=== PATIENT | male | born 1985 | race Caucasian/White ===

== ENCOUNTER 2020-10-06 08:39 | Outpatient (CLI) | payer OTHER, SELFPAY ==
[2020-10-06 09:05] LABS: Basophils Percent Auto 0.3 % (0.2-1.2); Eosinophils Absolute Auto 0.4 K/mm3 (0-0.3); Eosinophils Percent Auto 3.5 % (0-4.4); Hematocrit 46.4 % (42.0-52.0); Hemoglobin 16.1 g/dL (14.0-18.0); Immature Granulocyte Absolute 0.02 K/mm3 (0.00-0.031); Immature Granulocyte Percent A 0.2 % (0-0.5); Lymphocytes Absolute Auto 3.96 K/mm3 (0.9-3.2); Lymphocytes Percent Auto 34.3 % (18.3-44.2); Mean Corpuscular HGB Conc 34.7 g/dl (32-36); Mean Corpuscular Hemoglobin 32.7 pg (26-34); Mean Corpuscular Volume 94.1 fl (80-100); Mean Platelet Volume 9.3 fl (7.4-10.4); Monocytes Percent Auto 8.2 % (2.6-8.5); Neutrophils Absolute Auto 6.2 K/mm3 (1.3-6.7); Neutrophils Percent Auto 53.5 % (45.5-73.1); Platelet Count Result 344 k/mm3 (150-375); Red Blood Count 4.93 M/mm3 (4.6-6.20); Red Cell Distribution Width 12.4 % (11.5-14.5); White Blood Count 11.5 K/mm3 (4.5-10.0)
[2020-10-06 09:18] LABS: Alanine Aminotransferase 36 U/L (4-50); Albumin Level 4.5 g/dL (3.5-5.1); Alkaline Phosphatase 85 U/L (38-126); Anion Gap 6 mmol/L (8-16); Aspartate Amino Transferase 36 U/L (17-59); Bilirubin,Total 0.7 mg/dL (0.2-1.3); Blood Urea Nitrogen 15 mg/dL (9-20); Calcium 9.3 mg/dL (8.4-10.2); Carbon Dioxide 29 mmol/L (22-30); Chloride 106 mmol/L (98-107); Estimated Glomerular Filt Rate > 60; Glucose 87 mg/dL (75-110); Potassium 4.7 mmol/L (3.4-5.0); Sodium 141 mmol/L (137-145)
[2020-10-09 19:16] LABS: Erythropoietin (EPO) 7.9 mIU/mL (2.6-18.5)
== END 2020-10-06 08:40 | disposition home or self-care (01) ==
PROVIDERS: Visit Provider Internal Medicine Hematology & Oncology
DX: D75.1 Secondary polycythemia (principal)
CPT/HCPCS: 36415; 80053; 82668; 85025

== ENCOUNTER 2022-01-15 10:27 | Emergency (ER) | payer OTHER, SELFPAY ==
--- NOTE | 2022-01-15 10:38 | ED.NAVMDI ---
HPI - Nausea/Vomiting/Diarrhea General Chief complaint: Nausea/Vomiting/Diarrhea Stated complaint: Body Aches/ Vomitting Time Seen by Provider: 01/15/22 10:38 Source: patient and RN notes reviewed Mode of arrival: ambulatory Limitations: no limitations History of Present Illness HPI Narrative: 36 y/o male presented for c/o n/v/d x3 days. Endorses epigastric abd pain and chills. Cannot keep PO down. Denies hematochezia, melena, or hematemesis. Denies change in cough, sob, wheezing, dizziness. Current smoker 1PPD. Not vaccinated for covid/flu. Denies sick contacts. Related Data Allergies Allergy/AdvReac Type Severity Reaction Status Date / Time erythromycin base Allergy Severe THROAT Verified 01/15/22 10:34 CLOSES Review of Systems Review of Systems: CONSTITUTIONAL: Denies body aches, fever, reports chills EYES: Denies visual changes ENT: Denies rhinorrhea, congestion CARDIOVASCULAR: Denies chest pain, palpitations, or edema. RESPIRATORY: Denies cough or dyspnea. GASTROINTESTINAL: Endorses abdominal pain, nausea, vomiting, diarrhea. Denies hematochezia, melena, hematemesis GENITOURINARY: Denies dysuria, hematuria, or CVA tenderness. SKIN: Denies rash, itching, or wounds. MUSCULOSKELETAL: Denies back pain, joint pain, or myalgia. NEUROLOGIC: Denies headache, numbness, tingling, or weakness. PSYCH: Denies mood change All systems reviewed & are unremarkable except as noted in HPI and below PMFSH Comments At time of signature, I have reviewed and agree with nursing past medical, surgical, social and family history unless otherwise noted. Please see nursing chart for further information. There is no relevant family history pertinent to the presenting complaint Exam Narrative: GENERAL: Ill appearing, non toxic, appears older than stated age HEAD: Normocephalic, atraumatic. EYES: EOMI. Conjunctivae normal. ENT: Mucous membranes pink and moist. NECK: Normal AROM. Supple. No lymphadenopathy. CHEST: No respiratory distress. Clear to auscultation. HEART: Regular rate and rhythm. No murmur appreciated. Normal peripheral pulses. ABDOMEN: Nontender abdomen, No guarding, rebound tenderness, asymmetry; abd soft, nondistended, normal active bowel sounds. MUSCULOSKELETAL: No bony tenderness. EXTREMITIES: Normal range of motion. No edema. SKIN: Warm, dry, no rash. Capillary refill normal. Normal skin turgor. NEURO: No focal deficits. Alert and oriented x3. Gait steady. PSYCH: Normal affect. Course Course Emergency Course: Patient is aware of diagnosis, understands and agrees to treatment plan. Anticipatory guidance given. Patient agrees to follow-up as directed and is aware of reasons to seek care at the emergency department. Portions of this record may have been created with voice recognition software Level of Care: Express Care Visit Vital Signs Vital signs: Vital Signs Temperature 98.4 F 01/15/22 10:40 Pulse Rate 81 01/15/22 10:40 Respiratory Rate 18 01/15/22 10:40 Blood Pressure 128/83 01/15/22 10:40 Pulse Oximetry 100 01/15/22 10:40 Temperature 98.4 F 01/15/22 10:40 Pulse Rate 81 01/15/22 10:40 Respiratory Rate 18 01/15/22 10:40 Blood Pressure 128/83 01/15/22 10:40 Pulse Oximetry 100 01/15/22 10:40 MDM - Nausea/Vomiting/Diarrhea MDM Narrative Medical decision making narrative: Pt presented with n/v/d. Stable and no s/s dehydration. flu neg. He is advised on supportive treatment and s/s to go to the ER. Differential Diagnosis Differential diagnosis: Likely food poisoning, gastroenteritis and dehydration Lab Data Attestation: I reviewed the patient's lab results. Labs: Influenza A Screen Negative Reference Range: Negative Influenza B Screen Negative Reference Range: Negative Discharge Plan Discharge Clinical Impression: Vomiting Qualifi
[2022-01-15 10:40] VITALS: BP 128/83; PULSE 81; RESP 18; TEMP 36.9; O2SAT 100
[2022-01-15] MEDS: ONDANSETRON HCL ODT 4 MG TABLET SUBLINGUAL (10:50)
== END 2022-01-15 11:18 | disposition home or self-care (01) ==
PROVIDERS: Emergency Provider Nurse Practitioner Family; PCP Family Medicine
DX: R11.2 Nausea with vomiting, unspecified (principal)
CPT/HCPCS: 87804; 99213; A9270; G0463

== ENCOUNTER 2023-10-24 03:09 | Emergency (ER) | payer OTHER, SELFPAY ==
--- NOTE | ~2023-10-24 | CT_ITS ---
EXAMINATION: CT facial bones w con DATE: 10/24/2023 05:23 INDICATION: Right-sided facial swelling. TECHNIQUE: Computed tomography (CT) of the facial bones was performed with 100 cc Omnipaque 350 intra venous contrast. The dose-length product was 315.92 mGy-cm. Automated exposure control and iterative reconstruction technique were employed. COMPARISON: None FINDINGS: There is fluid/inflammation of the right facial soft tissues overlying the infraorbital and maxillary/mandibular regions, consistent with cellulitis. No discrete abscess identified. There are mildly prominent submandibular and cervical lymph nodes, likely reactive. Mild mucosal thickening of the sinuses. No intracranial abnormality is identified. No significant vascular abnormality. Mastoids are pneumatized. Orbits are unremarkable. Parapharyngeal spaces are symmetric. No significant abnorm ality of the mucosal space. IMPRESSION: 1. Moderate right facial soft tissue swelling/inflammation, consistent with cellulitis without discre te abscess. 2: Submandibular and cervical lymphadenopathy, likely reactive. 3: Moderate sinusitis. Reviewed, dictated and finalized at location A. [employer] IMPRESSION: 1. Moderate right facial soft tissue swelling/inflammation, consistent with adrian lulitis without discrete abscess. 2: Submandibular and cervical lymphadenopathy, likely reactive. 3: Moderate sinusitis.
[2023-10-24 03:20] VITALS: BP 152/90; PULSE 71; RESP 16; TEMP 36.8; O2SAT 99
[2023-10-24 03:22] VITALS: BP 152/90; PULSE 71; RESP 16; TEMP 36.8; O2SAT 99
[2023-10-24] MEDS: AMPICILLIN SULB 3 GM/NS 100 ML 3 GM/100 ML VIAL IVPB (04:07)
[2023-10-24 04:38] LABS: Lactic Acid Reflex 0.8 mmol/L (0.7-2.0)
--- NOTE | 2023-10-24 04:41 | ED.GENADULT ---
HPI - General Adult General Chief complaint: Dental/Oral Stated complaint: dental pain Time Seen by Provider: 10/24/23 03:25 History of Present Illness HPI narrative: patient is a 38-year-old gentleman who presents emergency department with chief complaint of facial swelling the patient reports that he was seen in urgent care earlier and started on Augmentin the patient has only had 1-2 doses of the Augmentin and reports that his upper right tooth is hurting where he has had significant tooth decay of the patient reports he has also swelling developing on the right side of his face the patient denies difficulty breathing denies difficulty swallowing denies trismus Related Data Allergies Allergy/AdvReac Type Severity Reaction Status Date / Time erythromycin base Allergy Severe THROAT Verified 10/24/23 03:22 CLOSES Review of Systems Review of Systems: A 10 system review of systems was completed on the patient and is negative except for what is stated in the HPI. Nursing and ancillary documentation was reviewed. Exam Narrative: GENERAL: Well-appearing, well-nourished, and in no acute distress. HEAD: Normocephalic, atraumatic. EYES: PERRLA and EOMI. ENT: Nares clear, no rhinorrhea or epistaxis. Mucous membranes moist. right canine tooth is decayed and there is swelling in the soft tissue of the gums there is no fluctuance there is no trismus is no crepitance NECK: Supple. CHEST: Clear to auscultation. No respiratory distress. HEART: Regular rate and rhythm. No murmur heard. Normal peripheral pulses. ABDOMEN: Soft, nontender, nondistended, normal active bowel sounds. EXTREMITIES: Normal range of motion. No edema. SKIN: Warm, dry, no rash. NEURO: No focal deficits. Alert and oriented x3. PSYCH: Normal mood and affect. Course Vital Signs Vital signs: Vital Signs Temperature 36.8 C 10/24/23 03:20 Pulse Rate 71 10/24/23 03:20 Respiratory Rate 16 10/24/23 03:20 Blood Pressure 152/90 H 10/24/23 03:20 Pulse Oximetry 99 10/24/23 03:20 Oxygen Delivery Room Air 10/24/23 03:20 Temperature 36.8 C 10/24/23 03:22 Pulse Rate 71 10/24/23 03:22 Respiratory Rate 16 10/24/23 03:22 Blood Pressure 152/90 H 10/24/23 03:22 Pulse Oximetry 99 10/24/23 03:22 Oxygen Delivery Room Air 10/24/23 03:22 Medical Decision Making MDM Narrative Medical decision making narrative: differential diagnosis includes abscess, cellulitis, Jeremy's angina laboratory studies were obtained on the patient showed a white count of 17 electrolytes are within normal limits lactic acid 0.7 CT face with IV contrast showed no evidence of abscess just evidence of cellulitis Vital Signs Vital Signs: Vital Signs Temperature 36.8 C 10/24/23 03:20 Pulse Rate 71 10/24/23 03:20 Respiratory Rate 16 10/24/23 03:20 Blood Pressure 152/90 H 10/24/23 03:20 Pulse Oximetry 99 10/24/23 03:20 Oxygen Delivery Room Air 10/24/23 03:20 Temperature 36.8 C 10/24/23 03:22 Pulse Rate 71 10/24/23 03:22 Respiratory Rate 16 10/24/23 03:22 Blood Pressure 152/90 H 10/24/23 03:22 Pulse Oximetry 99 10/24/23 03:22 Oxygen Delivery Room Air 10/24/23 03:22 Lab Data 10/24/23 04:06 10/24/23 04:06 Labs: Lab Results 10/24/23 Range/Units 04:06 WBC 17.0 H (4.5-10.0) K/mm3 RBC 5.18 (4.6-6.20) M/mm3 Hgb 16.4 (14.0-18.0) g/dL Hct 48.1 (42.0-52.0) % MCV 92.9 (80-100) fl MCH 31.7 (26-34) pg MCHC 34.1 (32-36) g/dl RDW 12.1 (11.5-14.5) % Plt Count 333 (150-375) k/mm3 MPV 10.1 (7.4-10.4) fl Immature Gran % (Auto) 0.4 (0-0.5) % Neut % (Auto) 55.7 (45.5-73.1) % Lymph % (Auto) 29.3 (18.3-44.2) % [place] % (Auto) 10.3 H (2.6-8.5) % Eos % (Auto) 3.8 (0-4.4) % Baso % (Auto) 0.5 (0.2-1.2) % Lymph # (Auto) 4.97 H (0.9-3.2) K/mm3 [place] # (Auto) 1.8 H (0.1-0.6) K/mm3 Eos # (Auto) 0.6 H (0-0.3) K/mm3 Baso
[2023-10-24 04:58] LABS: Basophils Absolute Auto 0.1 K/mm3 (0.0-0.1); Basophils Percent Auto 0.5 % (0.2-1.2); Eosinophils Absolute Auto 0.6 K/mm3 (0-0.3); Eosinophils Percent Auto 3.8 % (0-4.4); Hematocrit 48.1 % (42.0-52.0); Hemoglobin 16.4 g/dL (14.0-18.0); Immature Granulocyte Absolute 0.06 K/mm3 (0.00-0.031); Immature Granulocyte Percent A 0.4 % (0-0.5); Lymphocytes Absolute Auto 4.97 K/mm3 (0.9-3.2); Lymphocytes Percent Auto 29.3 % (18.3-44.2); Mean Corpuscular HGB Conc 34.1 g/dl (32-36); Mean Corpuscular Hemoglobin 31.7 pg (26-34); Mean Corpuscular Volume 92.9 fl (80-100); Mean Platelet Volume 10.1 fl (7.4-10.4); Monocytes Absolute Auto 1.8 K/mm3 (0.1-0.6); Monocytes Percent Auto 10.3 % (2.6-8.5); Neutrophils Absolute Auto 9.5 K/mm3 (1.3-6.7); Neutrophils Percent Auto 55.7 % (45.5-73.1); Platelet Count Result 333 k/mm3 (150-375); Red Blood Count 5.18 M/mm3 (4.6-6.20); Red Cell Distribution Width 12.1 % (11.5-14.5)
[2023-10-24 05:05] LABS: Alanine Aminotransferase 30 U/L (6-50); Albumin Level 4.2 g/dL (3.5-5.1); Alkaline Phosphatase 101 U/L (38-126); Anion Gap 7 mmol/L (8-16); Aspartate Amino Transferase 28 U/L (17-59); Bilirubin,Total 0.8 mg/dL (0.2-1.3); Blood Urea Nitrogen 14 mg/dL (9-20); Calcium 9.1 mg/dL (8.4-10.2); Carbon Dioxide 24 mmol/L (22-30); Chloride 109 mmol/L (98-107); Estimated CRCL calculation 83 ml/min; Estimated Glomerular Filt Rate > 60; Glucose 99 mg/dL (65-110); Potassium 3.6 mmol/L (3.4-5.0); Sodium 140 mmol/L (137-145)
[2023-10-24 06:33] VITALS: BP 156/92; PULSE 77; RESP 18; O2SAT 99
== END 2023-10-24 06:36 | disposition home or self-care (01) ==
PROVIDERS: Emergency Provider Emergency Medicine
DX: K04.7 Periapical abscess without sinus (principal); L03.211 Cellulitis of face
CPT/HCPCS: 36415; 70487; 80053; 83605; 85025; 96365; 99284; J0295; Q9967